=== PATIENT | male | born 1990 | race American Indian/Alaskan Native ===

== ENCOUNTER 2022-05-06 01:58 | Emergency (ER) | payer SELFPAY ==
[2022-05-06 02:55] VITALS: BP 129/67
[2022-05-06 04:56] LABS: Mucus,Urine FEW /HPF
[2022-05-06 05:08] LABS: Color,Urine Straw (Yellow)
[2022-05-06 05:09] LABS: Bilirubin,Urine NEG (Negative); Blood,Urine NEG (Negative)
[2022-05-06 05:10] LABS: Protein,Urine <30 mg dL mg/dL (Negative); Urobilinogen,Urine < 2.0 mg/dL (<2.0)
== END 2022-05-06 04:00 | disposition left against medical advice (07) ==
LOC: ED 01:58
DX: M25.562 Pain in left knee (principal); Z53.21 Procedure and treatment not carried out due to patient leaving prior to being seen by health care provider
CPT/HCPCS: 81001

== ENCOUNTER 2022-05-23 22:21 | Emergency (ER) | payer SELFPAY ==
[2022-05-24 03:54] LABS: Bilirubin,Urine NEG (Negative); Blood,Urine SM (Negative); Color,Urine Yellow (Yellow)
[2022-05-24 03:57] LABS: Mucus,Urine 2+ /HPF
[2022-05-24 03:59] LABS: WBC,Urine > 182.0 /HPF (0.0-6.0)
[2022-05-24] MEDS ORDERED: LIDOCAINE-MPF (1%) 10 MG/1 ML VIAL 5 ML INFILTRATI ONE (04:21)
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
[2022-05-24 05:43] VITALS: BP 114/60
== END 2022-05-24 05:43 | disposition home or self-care (01) ==
LOC: ED 22:21
DX: R30.0 Dysuria (principal); Z20.2 Contact with and (suspected) exposure to infections with a predominantly sexual mode of transmission; F17.290 Nicotine dependence, other tobacco product, uncomplicated
CPT/HCPCS: 81001; 96372; 99283; J0696; J3490